=== PATIENT | female | born 1960 | race Caucasian/White ===

== ENCOUNTER 2017-02-20 09:41 | Day surgery (SDC) | payer OTHER ==
[2017-02-20] MEDS ORDERED: Nivolumab 200 MG, Nivolumab 40 MG, Admixture Fee 1 EACH in Sodium Chloride 0.9% 250 ML ... IVPB SCH (10:00)
[2017-02-20 10:21] VITALS: BP 137/83; TEMP 99.4
== END 2017-02-20 11:21 | disposition home or self-care (01) ==
LOC: ONC/OP 09:41
PROVIDERS: ATTEND Internal Medicine Hematology & Oncology
DX: Z51.11 Encounter for antineoplastic chemotherapy (principal); C67.2 Malignant neoplasm of lateral wall of bladder; I25.10 Atherosclerotic heart disease of native coronary artery without angina pectoris; F17.200 Nicotine dependence, unspecified, uncomplicated; Z79.899 Other long term (current) drug therapy; Z95.5 Presence of coronary angioplasty implant and graft; Z80.0 Family history of malignant neoplasm of digestive organs
CPT/HCPCS: 96413; A4216; J1642; J7050; J9299

== ENCOUNTER 2017-02-26 14:06 | Inpatient (IN) | payer SELFPAY ==
[2017-02-26 14:46] LABS: Bilirubin Moderate (Negative); Blood, Urine Large (Negative); Glucose, Urine (Dipstick) Negative (Negative); Ketone, Urine 15 mg/dL (Negative); Nitrite Positive (Negative); Protein, Urine (Dipstick) 300 mg/dL (Neg-Trace)
[2017-02-26 14:54] LABS: Hyaline Casts/LPF 4-6 HYALINE CAST LPF (0-3 Hyaline)
[2017-02-26 15:07] LABS: RBC/HPF GREATER THAN 50-TNTC HPF (0-3)
[2017-02-26 15:08] LABS: Bacteria/HPF Rare-Few HPF (None Seen); Yeast-All Forms None Seen HPF (None Seen)
[2017-02-26 15:15] LABS: #Eosinphils 0.1 thou/uL (0.0-0.7); #Lymphocytes 1.5 thou/uL (1.20-3.40); #Monocytes 0.8 thou/uL (0.11-0.59); #Neutrophils 5.7 thou/uL (1.40-6.50); %Basophils 0.6 % (0.0-1.0); %Eosinophils 1.1 % (0.0-10.0); %Lymphocytes 18.2 % (21.0-51.0); %Monocytes 9.3 % (0.0-10.0); Hematocrit 35.5 % (36.0-47.0); Mean Platelet Volume 7.4 fL (7.4-10.4); Red Blood Cell (RBC) Count 3.77 mill/uL (4.20-5.40); White Blood Cell (WBC) Count 8.1 thou/uL (4.8-10.8)
[2017-02-26 15:36] LABS: ALT (SGPT) Less than 7 U/L (8-55); AST (SGOT) 10 U/L (5-34); Alkaline Phosphatase 130 U/L (40-150); Anion Gap 14 mmol/L (10-20); BUN (Urea Nitrogen) 22 mg/dL (9.8-20.1); Bilirubin, Total 0.2 mg/dL (0.2-1.2); Calc. Creatinine Clearance 0 mL/min (70-130); Calcium 9.6 mg/dL (7.8-10.44); Carbon Dioxide 26 mmol/L (22-29); Chloride 99 mmol/L (98-107); Estimated GFR-MDRD 53; Globulin 3.6 g/dL (2.4-3.5); Lipase 11 U/L (8-78); Protein, Total 7.4 g/dL (6.0-8.3)
[2017-02-26] MEDS ORDERED: cefTRIAXone\\ROCEPHIN 1 GM VIAL ONE (15:54)
[2017-02-26] MEDS ORDERED: Sodium Chloride 0.9% 100 ML ONE (15:55)
[2017-02-26] MEDS ORDERED: ISOVUE-370 76%-LOCM 1 ML ONE (16:36)
--- NOTE | 2017-02-26 17:02 | CT ---
CT OF THE ABDOMEN AND PELVIS WITH IV CONTRAST: Date: 02/26/17 INDICATION: Left lower quadrant abdominal pain. COMPARISON: Prior CT dated 08/29/16. FINDINGS: The lung bases are clear. Small hypodensities within the right hepatic lobe are stable. The pancreas, spleen, and adrenal glands appear within normal limits. There is severe left hydronephrosis. The previously seen percutaneous nephrostomy tube on the left h as been removed. The enhancing mass involving the left aspect of the bladder has increased in size a nd it appears to extend beyond the posterior margins of the bladder wall and into the anterior aspec t of the lower uterine body/upper cervix, on image 70 of series 2. There is also a separate enhancin g component seen near the right UVJ causing mild to moderate right hydronephrosis. There is mild free fluid in the pelvis. The rectum and colon appear within normal limits. There is s cattered diverticula involving the colon. There is a normal appendix in the right lower quadrant. The sclerotic lesion involving the left aspect of L4 has increased in size, now measuring 1.3 cm, co nsistent with worsening osseous metastatic disease. There is worsening osseous metastatic disease in volving the ilium. The largest lesion is seen involving the posterior aspect of the ilium now measur ing 2.6 cm, where on the prior it measured 1.6 cm. There is diffuse osteopenia. IMPRESSION: 1. Worsening of the large enhancing mass involving the posterior aspect of the bladder with extrave sicular spread of tumor into the anterior aspect of the lower uterine body. There is also tumor invo lving the right UVJ. There is severe left and mild to moderate right hydronephrosis. The previously seen percutaneous nephrostomy tube involving the left renal collecting system has been removed. The previously seen right ureteral stent has been removed. 2. Worsening osseous metastatic disease. 3. Hypodensities involving the right hepatic lobe are similar. These are likely reflective of small cysts. Findings called to Dr. Meade at 1648 hours on 02/26/17. CODE CR. POS: [facility]
[2017-02-26] MEDS ORDERED: Acetaminophen 325 MG TAB PO PRN (18:40)
[2017-02-26] MEDS ORDERED: Acetaminophen 650 MG Suppository PR PRN (18:40)
[2017-02-26] MEDS ORDERED: Ondansetron HCl/PF 4 MG/2 ML Vial IVP PRN (18:43)
[2017-02-26] MEDS ORDERED: hydrALAZINE 20 MG/ML VIAL SLOW IVP PRN (18:49)
--- NOTE | 2017-02-26 19:40 | HP ---
PRIMARY CARE PROVIDER: NAT Forrester CHIEF COMPLAINT: Abdominal pain. HISTORY OF PRESENT ILLNESS: Ms. Meza is a pleasant 56-year-old lady who was seen at [facility] on 02/26/2017. She reports that over the last 5 days, she has had pain over th e left side of her abdomen, both from the left upper and left lower quadrants. The pain is on and o ff, 9/10 at its worst, no known aggravating or relieving factors, not accompanied by nausea, vomitin g or diarrhea. She denies any chest pain. She denies any shortness of breath. Her last bowel move ment was today morning. She came to the emergency room because of ongoing pain. REVIEW OF SYSTEMS: The following complete review of systems was negative, unless otherwise mentione d in the HPI or below: CONSTITUTIONAL: Weight loss or gain, sense of well-being, ability to conduct usual activities, exer cise tolerance. SKIN/BREAST: Rash, itching, changes in hair growth or loss, nail changes, breast lumps, tenderness, swelling, nipple discharge. EYES: Vision, double vision, tearing, blind spots, pain. ENT/MOUTH: Headaches (location, time of onset, duration, precipitating factors), vertigo, lighthead edness, injury. Vision, double vision, tearing, blind spots, pain, nose bleeding, colds, obstruction , discharge, dental difficulties, gingival bleeding, dentures, neck stiffness, pain, tenderness, mas ses in thyroid or other areas. CARDIOVASCULAR: Precordial pain, substernal distress, palpitations, syncope, dyspnea on exertion, o rthopnea, nocturnal paroxysmal dyspnea, edema, cyanosis, hypertension, heart murmurs, varicosities, phlebitis, claudication. RESPIRATORY: Pain, shortness of breath, wheezing, stridor, cough, hemoptysis, fever or night sweats . GASTROINTESTINAL: Poor appetite, dysphagia, indigestion, abdominal pain, heartburn, eructation, mariela sea, vomiting, hematemesis, jaundice, constipation, or diarrhea, abnormal stools (nica-colored, delaney y, bloody, greasy, foul smelling), flatulence, hemorrhoids, recent changes in bowel habits. GENITOURINARY: Urgency, frequency, dysuria, nocturia, hematuria, polyuria, oliguria, unusual (or ch susana in) color of urine, stones, hesitancy, change in size of stream, dribbling, acute retention or incontinence, libido, potency. MUSCULOSKELETAL: Pain, swelling, redness or heat of muscles or joints, limitation, of motion, muscu lar weakness, atrophy, cramps. NEUROLOGIC/PSYCHIATRIC: Convulsions, paralyses, tremor, incoordination, paresthesias, difficulties with memory of speech, sensory or motor disturbances, or muscular coordination (ataxia, tremor), emo tional problems, anxiety, depression, previous psychiatric care, unusual perceptions, hallucinations . ALLERGY/IMMUNOLOGIC: Skin rash, anemia, bleeding tendency, polydipsia, polyuria, intolerance to hea t or cold. PAST MEDICAL HISTORY: Significant for bladder cancer on chemotherapy. PAST SURGICAL HISTORY: Left-sided nephrostomy placed in 06/2016, removed in 08/2016, right-sided ur eteric stent placed in 08/2016 and removed in 09/2016. FAMILY HISTORY: Significant for multiple malignancies in her mother. SOCIAL HISTORY: The patient denies alcohol use or recreational drug use. She smokes 1 pack of ciga rettes a day. ALLERGIES: She has no known drug allergies. CURRENT MEDICATIONS: Include [place] p.r.n. and Zofran p.r.n. PHYSICAL EXAMINATION: GENERAL: Ms. Meza is awake and alert, not in acute distress. VITAL SIGNS: Blood pressure is 176/107, pulse is 97. She is breathing at rate of 16 and saturating 98% on room air. EYES: No scleral icterus. No conjunctival pallor. ENT: Dry mucosal membranes, no oropharyngeal erythema or exudates. NECK: Supple, nontender, normal range of movement, trachea is midline. RESPIRATORY: Accessory muscles of breathing are not active. Chest wall movements are symmetric ger aterally. LUNGS: Clear to auscultation without wheeze, rhonchi or crepitations. CARDIOVASCULAR: S1 and S2 are heard, regular. Peripheral pulses palpable. No carotid bruit, no pe ricardial rub. ABDOMEN: Soft, left upper and lower quadrant tenderness present, no guarding or rigidity, bowel monet nds heard, no hepatomegaly, no splenomegaly. NEUROLOGIC: Cranial nerves II-XII intact, deep tendon reflexes are 2+. PSYCHIATRIC: Normal mood, normal affect, patient is oriented to time, place and person. MUSCULOSKELETAL: Power is 5/5 in all 4 extremities, normal range of movement at all major extremity joints. SKIN: No rashes or subcutaneous nodules. LYMPHATIC: No cervical lymphadenopathy. LABORATORY DATA: Ms. Meza's labs and investigations were reviewed. She had a CT scan of the abdo men and pelvis, which showed worsening of a large enhancing mass involving the posterior aspect of t he bladder with extravesicular spread of tumor into the anterior aspect of the lower uterine body. She also has tumor involvement in the right ureterovesical junction, severe left and mild to moderat e right hydronephrosis and worsening osseous metastatic disease. Laboratory investigations show nor mal white count, normocytic anemia with hemoglobin 11.5, normal platelet count, hyponatremia with so dium of 135, normal potassium, normal creatinine, elevated blood urea nitrogen of 22, normal total b ilirubin, normal AST and ALT, normal lipase and urinalysis is positive for nitrite, leukocyte estera se, bilirubin and protein. ASSESSMENT AND PLAN: Ms. Meza is a pleasant 56-year-old lady, who was seen at [facility]. Her problem list includes: 1. Abdominal pain: Most likely secondary to hydronephrosis from bladder cancer. 2. Hydronephrosis: Urology service will be consulted for their opinion and help with management of hydronephrosis. The patient will be kept n.p.o. after midnight to facilitate any procedures to be done in the morning. 3. Hyponatremia: Mild, we will recheck. 4. Dehydration: The patient is clinically dehydrated. She reports poor oral intake. We will prov atul intravenous hydration. 5. Urinary tract infection: We will start ceftriaxone, await urine cultures. 6. Metastatic bladder cancer: Consult Oncology. Ms. Meza was diagnosed with bladder cancer in 05/2016. She is currently undergoing treatment with nivolumab every 2 weeks for the last 2 months. In view of worsening disease, we will request Oncology opinion and help with further management. 7. Elevated blood pressures: Ms. Meza does not have a formal diagnosis of hypertension. Her blo od pressure has been high in the emergency room. I will start p.r.n. IV hydralazine. 8. Tobacco abuse: Counseling regarding tobacco cessation, nicotine replacement therapy. LEVEL OF RISK: Moderate. LEVEL OF COMPLEXITY: Moderate.
[2017-02-26] MEDS: Sodium Chloride 0.9% 1,000 ML IV SCH (22:24)
[2017-02-26 22:47] VITALS: BMI 18.2
[2017-02-27] MEDS ORDERED: Ketorolac Tromethamine 30 MG/ML VIAL IVP SCH (04:45)
[2017-02-27 05:17] LABS: #Eosinphils 0.1 thou/uL (0.0-0.7); #Lymphocytes 1.1 thou/uL (1.20-3.40); #Monocytes 0.7 thou/uL (0.11-0.59); #Neutrophils 4.7 thou/uL (1.40-6.50); %Basophils 0.4 % (0.0-1.0); %Eosinophils 1.4 % (0.0-10.0); %Lymphocytes 16.9 % (21.0-51.0); %Monocytes 9.9 % (0.0-10.0); Hematocrit 32.5 % (36.0-47.0); Mean Platelet Volume 7.4 fL (7.4-10.4); Red Blood Cell (RBC) Count 3.45 mill/uL (4.20-5.40); White Blood Cell (WBC) Count 6.6 thou/uL (4.8-10.8)
[2017-02-27 05:41] LABS: Anion Gap 11 mmol/L (10-20); BUN (Urea Nitrogen) 12 mg/dL (9.8-20.1); Calc. Creatinine Clearance 68 mL/min (70-130); Calcium 8.9 mg/dL (7.8-10.44); Carbon Dioxide 26 mmol/L (22-29); Chloride 101 mmol/L (98-107); Estimated GFR-MDRD 79
[2017-02-27] MEDS ORDERED: FLU VACC QS2017-18 36 mo. & older 0.5 ML SYRINGE IM ONE (09:00)
[2017-02-27] MEDS: Ketorolac Tromethamine 30 MG/ML VIAL IVP PRN ×2 (09:33→17:37)
[2017-02-27] MEDS: Nicotine 21 MG PATCH TD SCH (09:38)
[2017-02-27] MEDS: Sodium Chloride 0.9% 1,000 ML IV SCH (09:40)
--- NOTE | 2017-02-27 10:57 | PDOC.PN ---
- Subjective Encounter Start Date: 02/27/17 Encounter Start Time: 07:00 Pt seen for followup re: hydronephrosis. Reports she feels better. No abdominal pain. No chest pain, shortness of breath, fevers or chills. No nausea or vomiting. - Objective MAR Reviewed: Yes Vital Signs & Weight: Vital Signs (12 hours) Temp Pulse Resp BP BP Pulse Ox 02/27/17 07:25 98.7 F 91 16 142/83 H 96 02/27/17 04:00 98.9 F 97 18 165/89 H 97 02/27/17 01:30 86 18 161/83 H 02/27/17 00:18 97 176/100 H 02/27/17 00:00 99.0 F 97 18 176/100 H 96 Weight Weight 113 lb Result Diagrams: 02/27/17 05:05 02/27/17 05:05 Phys Exam - Physical Examination Constitutional: NAD HEENT: moist MMs, oral pharynx no lesions Neck: supple Respiratory: clear to auscultation bilateral Cardiovascular: RRR Gastrointestinal: soft, non-tender, positive bowel sounds Musculoskeletal: pulses present Neurological: moves all 4 limbs Psychiatric: normal affect Dx/Plan (1) Hydronephrosis Code(s): N13.30 - UNSPECIFIED HYDRONEPHROSIS Status: Acute (2) UTI (urinary tract infection) Status: Acute (3) Bladder cancer Status: Chronic - Plan plan discussed w/ family, continue antibiotics, out of bed/ambulate, DVT proph w /SCDs * . Await urology input re: hydronephrosis. Abdo pain resolved. Continue IV ceftriaxone, await cultures. Await oncology input. Review of Systems - Review of Systems Constitutional: negative: Fever, Chills, Sweats, Weakness, Malaise Cardiovascular: negative: Chest Pain, Palpitations, Orthopnea, Paroxysmal Noc. Dyspnea, Edema, Light Headedness Gastrointestinal: negative: Nausea, Vomiting, Abdominal Pain, Diarrhea, Constipation, Melena, Hematochezia - Medications/Allergies Allergies/Adverse Reactions: Allergies Allergy/AdvReac Type Severity Reaction Status Date / Time No Known Allergies Allergy Verified 02/26/17 21:58 Medications: Current Medications Acetaminophen (Tylenol) 650 mg PO Q4H PRN PRN Reason: Headache/Fever or Pain Acetaminophen (Tylenol) 650 mg [place] Q4H PRN PRN Reason: Headache/Fever or Pain Hydrocodone Bitart/Acetaminophen ([place] 5/325) 1 tab PO QID PRN PRN Reason: Pain Hydralazine HCl (Apresoline) 10 mg SLOW IVP Q6H PRN PRN Reason: SBP Greater Than 170 Last Admin: 02/27/17 00:18 Dose: 10 mg Sodium Chloride (Normal Saline 0.9%) 1,000 mls @ 75 mls/hr IV .[id number] [facility] Last Admin: 02/27/17 09:40 Dose: 1,000 mls Ceftriaxone Sodium 1 gm/ (Sodium Chloride) 100 mls @ 200 mls/hr IVPB Q24HR [facility] Ketorolac Tromethamine (Toradol) 15 mg IVP Q8H PRN PRN Reason: Mild-Moderate Pain (1-5) Stop: 03/04/17 08:40 Last Admin: 02/27/17 09:33 Dose: 15 mg Morphine Sulfate (Morphine Sulfate) 2 mg SLOW IVP Q4H PRN PRN Reason: Pain Last Admin: 02/27/17 00:23 Dose: 2 mg Nicotine (Nicoderm Patch) 21 mg TD DAILY [facility] Last Admin: 02/27/17 09:38 Dose: Not Given Ondansetron HCl (Zofran) 4 mg IVP Q6H PRN PRN Reason: Nausea/Vomiting Last Admin: 02/27/17 00:21 Dose: 4 mg Sodium Chloride (Flush - Normal Saline) 10 ml IVF Q12HR [facility] Last Admin: 02/27/17 09:37 Dose: 10 ml Sodium Chloride (Flush - Normal Saline) 10 ml IVF PRN PRN PRN Reason: Saline Flush
[2017-02-27 12:03] LABS: PTT 34.3 SEC (22.9-36.1)
[2017-02-27] MEDS: cefTRIAXone\\ROCEPHIN 1 GM in Sodium Chloride 0.9% 100 ML IVPB SCH (16:06)
--- NOTE | 2017-02-27 18:31 | CON ---
DATE OF CONSULTATION: 02/27/2017 REASON FOR CONSULTATION: Bladder cancer. HISTORY OF PRESENT ILLNESS: Ms. 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 She underwent neoadjuvant treatmen t with Platinol and Gemzar. She progressed in the bone in August. She then began Opdivo immunothera py in September. She had a nephrostomy tube and ureteral stent placed at time of diagnosis that was remov ed in 10/2016. Over the past few weeks, she has been struggling somewhat. Her appetite has been ma rginal and she had lost a few pounds. She was said to have a restaging CT later this week when she presented to the emergency room yesterday with complaints of pain. An abdomen and pelvis CT done in the emergency room showed worsening of her large enhancing mass of the posterior aspect of the blad roseline. There was now extravesicular spread of the tumor in to the anterior aspect of the lower uterin e body. There was severe left hydronephrosis. There was [id number] right hydronephrosis. Ирина mckeon also had worsening metastatic disease. Dr. Fink her urologist has been consulted and the plan is to replace the left nephrostomy tube. We were asked to see the patient regarding her progression . Patient is currently comfortable. Her pain is controlled with tramadol. She denies any chest pa in or shortness of breath. No abdominal pain at this time. Her friend is in the room with her. PAST MEDICAL HISTORY: 1. 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 2. Coronary artery disease. PAST SURGICAL HISTORY: 1. Nephrostomy tube placement and removal in 10/2015. 2. Coronary artery stent placement in 2006. ALLERGIES: No known drug allergies. CURRENT MEDICATIONS: 1. [place] 10/325 one to two q.i.d. p.r.n. pain. 2. Zofran 8 mg p.r.n. FAMILY HISTORY: Her mother had colorectal cancer. SOCIAL HISTORY: Has two children. Current everyday smoker. No alcohol or illicit drug use. REVIEW OF SYSTEMS: A 12 point review of systems is negative except for noted in HPI. PHYSICAL EXAMINATION: VITAL SIGNS: Temperature is 98.7, pulse is 89, respiratory rate 16, BP is 158/89. She is 99% on ro om air. GENERAL: Well-developed, well-nourished female in no acute distress. HEENT: Normocephalic, atraumatic. Pupils equal and reactive to light. NECK: Supple. CARDIOVASCULAR: Regular rate and rhythm. LUNGS: Clear. She does have a nonproductive cough. ABDOMEN: Soft, nontender, bowel sounds are positive. EXTREMITIES: No clubbing, cyanosis or edema. SKIN: No rash. HEMATOLOGICAL: No petechia or purpura. NEUROLOGIC: Nonfocal. PSYCHIATRIC: The patient is alert and oriented and appropriate. PERTINENT LABORATORY AND X-RAYS: Current WBCs are 6.6, hemoglobin 10.5, hematocrit 32.5, platelet c ount 287,000, 71% neutrophils, 16% lymphocytes, PT is 14, INR is 1.1, PTT is 34.3. Sodium 134, pota ssium 3.6, chloride 101, CO2 is 26, BUN 12, creatinine 0.76, calcium 8.9, total bilirubin is 0.2, T is 10, ALT is less than 7, alkaline phosphatase 130. Serum total protein 7.4, albumin 3.8, globul in 3.6, lipase is 11. Urine is positive for blood, but no bacteria. Radiology per HPI. Assessment: 1. Metastatic bladder cancer with progression on immunotherapy. 2. Severe left hydronephrosis. DISCUSSION: Dr. Fink is planning on a left nephrostomy tube placement tomorrow. Her pain is hafsa quately controlled with tramadol. We will continue in the outpatient setting. She is receiving IV fluids at this time and taking p.o. She will need a new treatment regimen. She does have an appoint ment with Dr. Little next week. They can discuss further treatment options in the outpatient [place]. Thank you for the consult.
[2017-02-27] MEDS: HYDROcodone/Acetaminophen 5/325 mg Tablet PO PRN (23:34)
--- NOTE | 2017-02-27 23:47 | CON ---
DATE OF CONSULTATION: 02/27/2017 REASON FOR CONSULTATION: Left-sided hydronephrosis. HISTORY OF PRESENT ILLNESS: Ms. Yumiko Meza is a 56-year-old female, who is well known by me. I first met her at [place] when she was admitted to the hospital with gross hematuria, anemia and e nlarged bladder mass. She was taken to the operating room on 05/25/16 during that admission where s he underwent transurethral resection of bladder tumor and placement of right ureteral stent. At keith t time, she had bilateral ureteral obstruction. The left ureteral orifice could not be visualized b ecause of tumor burden. She has since been diagnosed with metastatic disease. Her disease has demo nstrated evidence of progression despite chemotherapy. After an initial management of her urinary t ract with the right ureteral stent and a left nephrostomy tube, they were both eventually removed an d she has done well. I believe her nephrostomy tube was removed approximately 5 months ago. She alatorre d done well until recently. Over the last 4-5 days; however, she has just developed left flank pain . CT scan demonstrates recurrent left-sided marked hydronephrosis. She denies any dysuria, fevers or chills. PAST MEDICAL HISTORY: Metastatic bladder cancer. PAST SURGICAL HISTORY: Transurethral resection of bladder tumor and stent placement in 05/2016, lef t-sided nephrostomy tube in 07/07. SOCIAL HISTORY: She denies alcohol use. She continues to smoke. ALLERGIES: No known drug allergies. CURRENT MEDICATIONS: [place] and Zofran. REVIEW OF SYSTEMS: RESPIRATORY: She denies any shortness of breath. CARDIOVASCULAR: No chest pain or palpitations. GASTROINTESTINAL: Denies chronic constipation or diarrhea. GENITOURINARY: Please see history of present illness. NEUROLOGIC: Denies any symptoms suggesting stroke. PHYSICAL EXAMINATION: GENERAL: She is awake and alert. She is in no distress at this time. HEENT: Normocephalic, atraumatic. NECK: Supple without masses. CHEST: Clear to auscultation. CARDIOVASCULAR: Regular rate and rhythm. ABDOMEN: Soft, nontender, no palpable masses. Liver and spleen are palpable. No abdominal tendern ess noted. EXTREMITIES: No edema. Creatinine 1.1. CT scan marked left-sided hydronephrosis, mild to moderate right-sided hydronephrosis. IMPRESSION: Ms. Meza has metastatic bladder cancer with obstruction of the left ureter. She also has some right-sided hydronephrosis, but kidney seems to be functioning well based on normal creati nine in light of an obstructed left kidney and lack of flank pain on the right. An attempt was made in the past to place left ureteral stent, but this was not feasible based on her tumor burden on th e left side of the bladder. I have discussed with her management options. Although, she was hesita nt to proceed with nephrostomy tube placement if she found this quite uncomfortable tube to live wit h, she is interested in proceeding to improve her left-sided flank pain. RECOMMENDATIONS: Left percutaneous nephrostomy tube. Agree that Oncology should be notified of her admission. She was seen by Dr. Little.
[2017-02-28] MEDS: Sodium Chloride 0.9% 1,000 ML IV SCH ×2 (01:05→16:20)
[2017-02-28] MEDS: Ketorolac Tromethamine 30 MG/ML VIAL IVP PRN ×3 (03:49→22:21)
[2017-02-28 04:26] LABS: #Eosinphils 0.1 thou/uL (0.0-0.7); #Lymphocytes 1.3 thou/uL (1.20-3.40); #Monocytes 0.5 thou/uL (0.11-0.59); #Neutrophils 4.6 thou/uL (1.40-6.50); %Basophils 0.7 % (0.0-1.0); %Lymphocytes 19.9 % (21.0-51.0); %Monocytes 7.3 % (0.0-10.0); Hematocrit 32.3 % (36.0-47.0); Mean Platelet Volume 7.8 fL (7.4-10.4); Red Blood Cell (RBC) Count 3.43 mill/uL (4.20-5.40); White Blood Cell (WBC) Count 6.6 thou/uL (4.8-10.8)
[2017-02-28 04:28] LABS: Anion Gap 11 mmol/L (10-20); BUN (Urea Nitrogen) 14 mg/dL (9.8-20.1); Calc. Creatinine Clearance 68 mL/min (70-130); Carbon Dioxide 25 mmol/L (22-29); Chloride 104 mmol/L (98-107); Estimated GFR-MDRD 78
[2017-02-28] MEDS: HYDROcodone/Acetaminophen 5/325 mg Tablet PO PRN ×3 (05:47→17:52)
[2017-02-28] MEDS: Nicotine 21 MG PATCH TD SCH (08:04)
[2017-02-28] MEDS ORDERED: Fentanyl 250 MCG/5 ML VIAL ONE (08:45)
[2017-02-28] MEDS ORDERED: Midazolam HCl 2 mg/2 ml Vial ONE ×2 (08:45→09:14)
[2017-02-28] MEDS ORDERED: Glycopyrrolate 0.2 MG/ML 5 ML SYRINGE ONE (09:52)
[2017-02-28] MEDS ORDERED: Ondansetron HCl/PF 4 MG/2 ML Vial ONE (09:52)
[2017-02-28] MEDS ORDERED: Propofol 200 MG/20 ML VIAL ONE (09:52)
[2017-02-28] MEDS ORDERED: Lidocaine 2% PF 10 ML AMP (For Epidural Use) ONE (09:52)
--- NOTE | 2017-02-28 10:04 | PDOC.PN ---
- Subjective Encounter Start Date: 02/28/17 Encounter Start Time: 07:00 Pt seen for followup re: hydronephrosis. Denies chest pain, shortness of breath , fevers or chills. No abdo pain. - Objective Vital Signs & Weight: Vital Signs (12 hours) Temp Pulse Resp BP Pulse Ox 02/28/17 07:43 98.3 F 82 20 171/55 H 96 02/28/17 05:20 168/96 H 02/28/17 04:00 98.0 F 79 20 97 Weight Admit Weight 113 lb Weight 113 lb I&O: 02/27/17 02/28/17 03/01/17 06:59 06:59 06:59 Intake Total 1380 Balance 1380 Result Diagrams: 02/28/17 03:35 02/28/17 03:35 Phys Exam - Physical Examination Constitutional: NAD HEENT: moist MMs Neck: supple Respiratory: clear to auscultation bilateral Cardiovascular: RRR Gastrointestinal: soft Musculoskeletal: pulses present Neurological: moves all 4 limbs Psychiatric: normal affect Skin: no rash Dx/Plan (1) Hydronephrosis Code(s): N13.30 - UNSPECIFIED HYDRONEPHROSIS Status: Acute (2) UTI (urinary tract infection) Status: Acute (3) Bladder cancer Status: Chronic - Plan out of bed/ambulate, DVT proph w/SCDs * . Pt going for nephrostomy today. Urine culture negative, stop antibiotics and observe. Appreciate urology and oncology input. Review of Systems - Review of Systems Constitutional: negative: Fever, Chills, Sweats, Weakness, Malaise Respiratory: negative: Cough, Dry, Shortness of Breath, Hemoptysis, SOB with Excertion, Pleuritic Pain, Sputum, Wheezing Cardiovascular: negative: Chest Pain, Palpitations, Orthopnea, Paroxysmal Noc. Dyspnea, Edema, Light Headedness Gastrointestinal: negative: Nausea, Vomiting, Abdominal Pain, Diarrhea, Constipation, Melena, Hematochezia - Medications/Allergies Allergies/Adverse Reactions: Allergies Allergy/AdvReac Type Severity Reaction Status Date / Time No Known Allergies Allergy Verified 02/26/17 21:58 Medications: Current Medications Acetaminophen (Tylenol) 650 mg PO Q4H PRN PRN Reason: Headache/Fever or Pain Acetaminophen (Tylenol) 650 mg [place] Q4H PRN PRN Reason: Headache/Fever or Pain Hydrocodone Bitart/Acetaminophen ([place] 5/325) 1 tab PO QID PRN PRN Reason: Pain Last Admin: 02/28/17 05:47 Dose: 1 tab Hydralazine HCl (Apresoline) 10 mg SLOW IVP Q6H PRN PRN Reason: SBP Greater Than 170 Last Admin: 02/27/17 00:18 Dose: 10 mg Sodium Chloride (Normal Saline 0.9%) 1,000 mls @ 75 mls/hr IV .[id number] [facility] Last Admin: 02/28/17 01:05 Dose: 1,000 mls Ceftriaxone Sodium 1 gm/ (Sodium Chloride) 100 mls @ 200 mls/hr IVPB Q24HR [facility] Last Admin: 02/27/17 16:06 Dose: 100 mls Ketorolac Tromethamine (Toradol) 15 mg IVP Q8H PRN PRN Reason: Mild-Moderate Pain (1-5) Stop: 03/04/17 08:40 Last Admin: 02/28/17 03:49 Dose: 15 mg Morphine Sulfate (Morphine Sulfate) 2 mg SLOW IVP Q4H PRN PRN Reason: Pain Last Admin: 02/27/17 20:43 Dose: 2 mg Nicotine (Nicoderm Patch) 21 mg TD DAILY [facility] Last Admin: 02/28/17 08:04 Dose: Not Given Ondansetron HCl (Zofran) 4 mg IVP Q6H PRN PRN Reason: Nausea/Vomiting Last Admin: 02/27/17 00:21 Dose: 4 mg Sodium Chloride (Flush - Normal Saline) 10 ml IVF Q12HR [facility] Last Admin: 02/28/17 08:04 Dose: Not Given Sodium Chloride (Flush - Normal Saline) 10 ml IVF PRN PRN PRN Reason: Saline Flush Last Admin: 02/28/17 03:51 Dose: 10 ml
[2017-02-28] MEDS ORDERED: Promethazine HCl 25 MG/ML VIAL SLOW IVP PRN (11:23)
[2017-02-28] MEDS ORDERED: Promethazine HCl 25 MG/ML VIAL IM PRN (11:23)
[2017-02-28] MEDS ORDERED: Ondansetron HCl/PF 4 MG/2 ML Vial IVP PRN (11:23)
[2017-02-28] MEDS ORDERED: Promethazine HCl 25 MG/ML VIAL ONE (11:48)
[2017-02-28] MEDS ORDERED: hydrALAZINE 20 MG/ML VIAL ONE (12:06)
[2017-02-28] MEDS ORDERED: hydrALAZINE 20 MG/ML VIAL SLOW IVP SCH (12:30)
--- NOTE | 2017-02-28 14:03 | CT ---
CT GUIDED LEFT PERCUTANEOUS NEPHROSTOMY: 02/28/2017 HISTORY: A 56-year-old female with left obstructive uropathy (severe left hydronephrosis) due to bladder tumo r. TECHNIQUE: Signed informed consent was obtained. As requested by the physician, this procedure was performed w ith the anesthesiology service providing sedation. The patient was placed prone on the CT table. G rid markers were placed on the skin of the left flank. The skin of the left flank was prepared and draped in the usual sterile fashion. A 25 gauge needle was used to apply buffered Lidocaine superfi cially and deeply, including through the posterolateral renal parenchyma, at the lower pole, lateral to the left posterior paraspinal musculature. A skin incision was made, through which a 22 gauge A ccuStick needle was advanced, in tandem with the 25 gauge needle, into the dilated lower pole calyx. The 25 gauge needle was removed. A 0.018 inch guide wire was placed through the AccuStick needle, into the dilated collecting system. The AccuStick needle was exchanged over the guide wire for 5 F rench dilator. The 0.018 inch guide wire was exchanged for a 0.035 inch short Amplatz stiff guide w vinay. The 5 [place] dilator was changed for an 8 [place] dilator, over the Amplatz guide wire. The 8 [place] dilator was exchanged for an 8 [place] nephrostomy tube, over the Amplatz guide wire. The sty let and guide wire were removed. The pigtail loop of the nephrostomy tube was formed within the [place] al collecting system and was locked into place. The nephrostomy tube injected with contrast materia l, and then was sutured in place and attached to an external drainage bag. There was no complicatio n. FINDINGS: Prior to the procedure, CT images demonstrate severe left hydronephrosis and mild to moderate right hydronephrosis. Subsequent series of step CT images demonstrate first the 25 gauge needle, then the 22 gauge AccuStick needle, entering t he left kidney. This was followed by the 0.018 inch guide wire, a subsequent dilator, an Amplatz gu atul wire, and finally the nephrostomy tube. The contrast injection demonstrates opacification of th e dilated lower pole calyx and no extravasation of IV contrast. After drainage, the previously franky re left hydronephrosis has dramatically improved, such that there is only mild to moderate dilation of the left renal upper pole calyxes, and no dilation of the rest of the left real calyces or of the renal pelvis. Nephrostomy tube is in satisfactory position. IMPRESSION: Successful left percutaneous nephrostomy. POS: SHANTELLE
[2017-02-28] MEDS: cefTRIAXone\\ROCEPHIN 1 GM in Sodium Chloride 0.9% 100 ML IVPB SCH (16:18)
[2017-02-28] MEDS ORDERED: Acetaminophen/Codeine 30-300mg Tablet PO PRN ×2 (20:04)
[2017-03-01] MEDS: Ketorolac Tromethamine 30 MG/ML VIAL IVP PRN ×2 (04:33→09:27)
[2017-03-01 04:41] LABS: #Eosinphils 0.1 thou/uL (0.0-0.7); #Lymphocytes 1.2 thou/uL (1.20-3.40); #Monocytes 0.4 thou/uL (0.11-0.59); #Neutrophils 3.3 thou/uL (1.40-6.50); %Basophils 0.2 % (0.0-1.0); %Eosinophils 2.2 % (0.0-10.0); %Lymphocytes 24.1 % (21.0-51.0); %Monocytes 7.9 % (0.0-10.0); Hematocrit 30.1 % (36.0-47.0); Mean Platelet Volume 7.9 fL (7.4-10.4); Red Blood Cell (RBC) Count 3.17 mill/uL (4.20-5.40); White Blood Cell (WBC) Count 5.1 thou/uL (4.8-10.8)
[2017-03-01 04:58] LABS: Anion Gap 11 mmol/L (10-20); BUN (Urea Nitrogen) 12 mg/dL (9.8-20.1); Calc. Creatinine Clearance 63 mL/min (70-130); Calcium 8.6 mg/dL (7.8-10.44); Carbon Dioxide 25 mmol/L (22-29); Chloride 105 mmol/L (98-107); Estimated GFR-MDRD 73
[2017-03-01 07:04] VITALS: TEMP 98.8
[2017-03-01] MEDS ORDERED: Ketorolac Tromethamine 10 MG TAB PO PRN (08:25)
[2017-03-01] MEDS: Sodium Chloride 0.9% 1,000 ML IV SCH (09:16)
[2017-03-01] MEDS: Nicotine 21 MG PATCH TD SCH (09:17)
--- NOTE | 2017-03-01 09:42 | DIS ---
PRIMARY CARE PHYSICIAN: Yumiko Cannon NP DATE OF ADMISSION: 02/26/2017 DATE OF DISCHARGE: 03/01/2017 DISCHARGE DIAGNOSES: 1. Left-sided hydronephrosis, severe. 2. Right-sided hydronephrosis, mild to moderate. PROCEDURES DURING THIS HOSPITALIZATION: Left percutaneous nephrostomy. CONDITION OF PATIENT AT THE TIME OF DISCHARGE: Stable. I assessed Ms. Meza on the day of discharge. She denies any chest pain or shortness of breath. V ital signs are stable. S1 and S2 are heard, regular. Lungs clear to auscultation bilaterally. DISCHARGE MEDICATIONS: Ketorolac 10 mg orally every 8 hours as needed, 10 doses dispensed, [place] 2 tablets, 10/325 mg b.i.d. p.r.n. and Nicoderm 21 mg patch daily. HOSPITAL COURSE: Ms. Meza is a pleasant 56-year-old lady who was admitted to [facility] on 02/26/2017 for bilateral hydronephrosis, was on the left side as well as evidence o f worsening metastatic bladder cancer. She was seen by Urology and Oncology Services. Oncology Ser vice will follow up with her next week to discuss further course of action regarding her chemotherap y. Urology Service recommended percutaneous nephrostomy, which she had on 02/28/2017 on the left si de. She continued to improve clinically and is being discharged home in a stable condition. On the day of discharge, she has a normal Chem-7, white count 5100, hemoglobin 9.8, and platelet cou nt 277,000. She was initially started on antibiotics because of suspected urinary tract infection. However, her urine cultures did not show any growth. Antibiotics were discontinued. Many thanks for allowing me to participate in your patient's care. Please feel free to contact me w ith any questions or concerns. DISCHARGE DESTINATION: Home. TOTAL AMOUNT OF TIME SPENT COORDINATING THIS DISCHARGE: 33 minutes.
[2017-03-01 10:45] VITALS: BP 155/86
--- NOTE | 2017-03-01 13:36 | CT ---
CT GUIDED LEFT PERCUTANEOUS NEPHROSTOMY: 02/28/2017 HISTORY: A 56-year-old female with left obstructive uropathy (severe left hydronephrosis) due to bladder tumo r. TECHNIQUE: Signed informed consent was obtained. As requested by the physician, this procedure was performed w ith the anesthesiology service providing sedation. The patient was placed prone on the CT table. G rid markers were placed on the skin of the left flank. The skin of the left flank was prepared and draped in the usual sterile fashion. A 25 gauge needle was used to apply buffered Lidocaine superfi cially and deeply, including through the posterolateral renal parenchyma, at the lower pole, lateral to the left posterior paraspinal musculature. A skin incision was made, through which a 22 gauge A ccuStick needle was advanced, in tandem with the 25 gauge needle, into the dilated lower pole calyx. The 25 gauge needle was removed. A 0.018 inch guide wire was placed through the AccuStick needle, into the dilated collecting system. The AccuStick needle was exchanged over the guide wire for 5 F rench dilator. The 0.018 inch guide wire was exchanged for a 0.035 inch short Amplatz stiff guide w vinay. The 5 [place] dilator was exchanged for an 8 [place] dilator, over the Amplatz guide wire. The 8 [place] dilator was exchanged for an 8 [place] nephrostomy tube, over the Amplatz guide wire. The s tylet and guide wire were removed. The pigtail loop of the nephrostomy tube was formed within the r enal collecting system and was locked into place. The nephrostomy tube was injected with contrast m aterial, and then was sutured in place and attached to an external drainage bag. There was no compl ication. FINDINGS: Prior to the procedure, CT images demonstrate severe left hydronephrosis and mild to moderate right hydronephrosis. Subsequent series of step CT images demonstrate first the 25 gauge needle, then the 22 gauge AccuStick needle, entering t he left kidney. This is followed by the 0.018 inch guide wire, a subsequent dilator, an Amplatz jose e de wire, and finally the nephrostomy tube. The contrast injection demonstrates opacification of the dilated lower pole calyx and no extravasation of IV contrast. After drainage, the previously sever e left hydronephrosis has dramatically improved, such that there is only mild to moderate dilation o f the left renal upper pole calyxes, and no dilation of the rest of the left real calyces or of the renal pelvis. Nephrostomy tube is in satisfactory position. IMPRESSION: Successful left percutaneous nephrostomy.
== END 2017-03-01 11:43 | disposition home or self-care (01) | DRG 694 ==
LOC: ERS 14:06 → ERHOLD 17:40 → ONC 21:47
PROVIDERS: ADMIT Internal Medicine; ATTEND Internal Medicine
PROC: 0T9130Z Drainage of Left Kidney with Drainage Device, Percutaneous Approach (ICD-10-PCS; principal; 2017-02-28)
DX: N13.1 Hydronephrosis with ureteral stricture, not elsewhere classified (principal); C79.51 Secondary malignant neoplasm of bone; C67.9 Malignant neoplasm of bladder, unspecified; E87.1 Hypo-osmolality and hyponatremia; E86.0 Dehydration; F17.210 Nicotine dependence, cigarettes, uncomplicated; Z90.5 Acquired absence of kidney; Z92.21 Personal history of antineoplastic chemotherapy; Z95.5 Presence of coronary angioplasty implant and graft
CPT/HCPCS: 36415; 74150; 74177; 77002; 80048; 80053; 81003; 81015; 83690; 85025; 85610; 85730; 87086; 90471; 90732; 96361; 96365; 96375; 96376; A4216; C1729; G0009; J0360; J0696; J1642; J1885; J2001; J2250; J2270; J2405; J2550; J2704; J3010; J7050